=== PATIENT | female | born 1980 | race Caucasian/White ===

== ENCOUNTER 2019-01-24 01:21 | Emergency (ER) | payer OTHER ==
[~2019-01-24] VITALS: Ht 172.7 cm; Wt 78.9 kg
[2019-01-24] MEDS ORDERED: PRENATAL (01:29)
== END 2019-01-24 07:46 | disposition home or self-care (01) ==
LOC: ER 01:21
DX: K52.9 Noninfective gastroenteritis and colitis, unspecified (principal)